=== PATIENT | female | born 1960 | race Caucasian/White ===

== ENCOUNTER → 2017-01-06 | Outpatient (CLI) | payer OTHER, MEDICARE ==
[~2017-01-06] MED LIST: ACETAMINOPHEN W1 TA6 PO; SKELAXIN 800MG800 MG PO
== END ==
LOC: COL.RAD 14:50
DX: M47.814 Spondylosis without myelopathy or radiculopathy, thoracic region (principal); M47.816 Spondylosis without myelopathy or radiculopathy, lumbar region; M16.0 Bilateral primary osteoarthritis of hip; G89.29 Other chronic pain; Z98.1 Arthrodesis status

== ENCOUNTER → 2017-10-03 | Outpatient (CLI) | payer MEDICARE, OTHER | LOC: MC.RAD 11:20 | DX: Z12.31 Encounter for screening mammogram for malignant neoplasm of breast (principal) ==

== ENCOUNTER → 2019-08-28 | Outpatient (CLI) | payer MEDICARE | LOC: COL.RAD 16:11 | DX: M47.815 Spondylosis without myelopathy or radiculopathy, thoracolumbar region (principal); Z98.1 Arthrodesis status ==